=== PATIENT | female | born 1970 | race Caucasian/White ===

== ENCOUNTER 2017-01-16 10:52 | Emergency (ER) | payer MEDICARE ==
[~2017-01-16] VITALS: Ht 160 cm; Wt 69.0 kg
[~2017-01-16 10:52] MED LIST: CITRACAL + D C1 EACH PO; FOLBIC RF TABL1 EACH PO; GILDESS FE 1.51 EACH PO; IRON325 M1 PO; MEDROXYPROGESTE10 MG PO; NAPROSYN500 MG PO; NITROSTAT0.4 MG SL; PERCOCET 7.5-31 EACH PO; PRILOSEC20 MG PO; VITAMIN D5000 UNI1 PO
[2017-01-16] MEDS ORDERED: PROZAC40 MG PO (11:06)
--- NOTE | 2017-01-16 15:55 | EKG ---
[facility] [address] [facility] [place] [address] Signed Normal sinus rhythm Normal ECG No previous ECGs available Confirmed by KAN BAKER MD ([id number]) on 01/16/2017 3:55:29 PM Electronically Signed By: KAN BAKER MD 01/16/17 1555 PATIENT NAME: MICHOACANO AVALOS SOCORRO Electrocardiogram DATE OF : 72 PHYSICIAN: KAN BAKER MD REPORT #: [id number] REPORT IS CONFIDENTIAL AND NOT TO BE RELEASED WITHOUT AUTHORIZATION
== END 2017-01-16 13:30 | disposition home or self-care (01) ==
LOC: ED 10:52
DX: R00.2 Palpitations (principal); R07.9 Chest pain, unspecified; Z91.030 Bee allergy status; Z90.89 Acquired absence of other organs; Z90.49 Acquired absence of other specified parts of digestive tract; Z88.0 Allergy status to penicillin; Z88.8 Allergy status to other drugs, medicaments and biological substances; Z79.899 Other long term (current) drug therapy
CPT/HCPCS: 71020; 80053; 84443; 84484; 85025; 93005; 93010; 96374; 96375; 99284; J1885; J2060

== ENCOUNTER 2021-04-24 14:00 | Emergency (ER) | payer MEDICARE ==
[~2021-04-24] VITALS: Ht 157.5 cm; Wt 77.1 kg
[~2021-04-24 14:00] MED LIST changes: +PROZAC40 MG PO
--- OUTSIDE RECORDS SUMMARY | 2021-04-24 14:02 | XMS ---
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 Ev has no Care Guidelines for this patient. Jaent VISIT COUNT (12 MO.) 1 PINA Spears TOTAL 1 NOTE: Visits indicate total known visits. ED/UCC VISIT TRACKING (12 MO.) 04/24/2021 14:01 PINA [place] TYPE: Emergency COMPLAINT: - COLD SYMPTOMS INPATIENT VISIT TRACKING (12 MO.) No inpatient visits to display in this time frame [email or web address]
[2021-04-24] MEDS ORDERED: PREDNISONE20 MG PO (14:40)
[2021-04-24] MEDS ORDERED: VENTOLIN HFA18 GM INH (15:01)
== END 2021-04-24 15:16 | disposition home or self-care (01) ==
LOC: ED 14:00
DX: J45.901 Unspecified asthma with (acute) exacerbation (principal); G35 Multiple sclerosis; J45.909 Unspecified asthma, uncomplicated; Z88.0 Allergy status to penicillin; Z91.048 Other nonmedicinal substance allergy status; Z91.030 Bee allergy status; Z79.899 Other long term (current) drug therapy
CPT/HCPCS: 71046; 94640; 99284-25; J7512

== ENCOUNTER 2021-06-29 05:55 | Day surgery (SDC) | payer MEDICARE ==
[~2021-06-29] VITALS: Ht 157.5 cm; Wt 80.9 kg
--- NOTE | ~2021-06-29 | OR ---
[facility] [address] [place], [place] [address] Draft DATE OF OPERATION: 06/29/2021 SURGEON: Radha Cortez MD PREOPERATIVE DIAGNOSIS: Postmenopausal bleeding. POSTOPERATIVE DIAGNOSES: 1. Postmenopausal bleeding. 2. Endometrial polyps. ANESTHESIA: MAC. ESTIMATED BLOOD LOSS: Minimal. DRAINS: None. INDICATIONS AND FINDINGS: The patient is a 50-year-old female, who is on cyclic HRT for menopause and menopausal symptoms. Unfortunately, she has been having abnormal bleeding. At the time of surgery, exam under anesthesia revealed a normal-sized uterus. The cavity sounded to 9 cm. On evaluation of the cavity, there were polyps, both on the anterior and posterior fundus. DESCRIPTION OF PROCEDURE: The patient was prepped and draped in the dorsal lithotomy position. A weighted speculum was placed. The anterior lip of the cervix was visualized and grasped with a single-tooth tenaculum. The cavity sounded to 9 cm. The endocervical canal was then easily dilated to a #8 dilator. MyoSure device was placed and the cavity evaluated. The MyoSure Lite was then introduced and the polyps on the both anterior and posterior fundus were then removed without any difficulty. The remaining cavity appeared smooth and atrophic. The procedure was then terminated. The instruments removed. The tenaculum was removed. There was some bleeding initially from the right hand tenaculum site, which responded to pressure. Following this, the remaining instruments removed and the patient was taken to the recovery room. All sponge and needle counts were correct, and she tolerated the procedure well. PATIENT NAME: MICHOACANO AVALOS OPERATIVE REPORT DATE OF : 72 REPORT #: [id number] PHYSICIAN: RADHA CORTEZ MD PCP: LYLE COTTRELL REPORT IS CONFIDENTIAL AND NOT TO BE RELEASED WITHOUT AUTHORIZATION [address] [place], [place] [address] Draft MD DEVONTE Oh/VINEET /[id number] Copies: ~ PATIENT NAME: MICHOACANO AVALOS OPERATIVE REPORT DATE OF : 72 REPORT #: [id number] PHYSICIAN: RADHA CORTEZ MD PCP: LYLE COTTRELL REPORT IS CONFIDENTIAL AND NOT TO BE RELEASED WITHOUT AUTHORIZATION
[~2021-06-29 05:55] MED LIST changes: +ADVAIR 100-501 EACH INH; +ALEVE220 MG PO; +ESTRACE1 MG PO; +PREDNISONE20 MG PO; +VENTOLIN HFA18 GM INH
[2021-06-29] MEDS ORDERED: ARNUITY ELLIP100 MCG INH (06:25)
[2021-06-29] MEDS ORDERED: HYDROCODON-ACE1 EA10 PO (08:17)
[2021-06-29] MEDS ORDERED: MOTRIN IB200 M1 PO (08:17)
--- NOTE | 2021-06-30 18:29 | PATH ---
[facility] [address] [facility] [place] [address] Signed SPECIMEN(S): A ENDOMETRIAL POLYP SPECIMEN SOURCE: A. ENDOMETRIAL POLYP CLINICAL HISTORY: Postmenopausal bleeding. FINAL PATHOLOGIC DIAGNOSIS: Endometrial polyp: - Proliferative phase endometrium. - Some fragments of endometrium are intimately associated with myometrial fragments, most suggestive of features seen in a submucosal leiomyoma. TWK:caw:C2NR MICROSCOPIC EXAMINATION: The specimen consists of benign proliferative phase endometrium without significant abnormality. There is no evidence of hyperplasia or carcinoma. Chronic endometritis, interstromal fibrin, or products of conception are not identified. GROSS DESCRIPTION: The specimen, labeled "Rene, endometrial polyp as per the requisition," is received in formalin and consists of an aggregate of white rubbery soft tissue (3.4 x 1.7 x 0.5 cm). The specimen is submitted entirely in A1A2. KD (under the direct supervision of a pathologist) The Gross Description was prepared using a voice recognition system. The report was reviewed for accuracy; however, sound-alike word errors, addition and/or deletions may occur. If there is any question about this report, please contact Client Services. PERFORMING LABORATORY: The technical component was performed by [facility], [address] [place] [id number] (CLIA# [id number]). The professional interpretation was performed by [facility], [facility], [address] [place] [address] (CLIA#: [id number]). Diagnostician: Hua Thorpe MD Pathologist PATIENT NAME: MICHOACANO AVALOS PATHOLOGY DATE OF : 72 REPORT #: [id number] PHYSICIAN: RONAK PATHOLOGY PCP: LYLE COTTRELL REPORT IS CONFIDENTIAL AND NOT TO BE RELEASED WITHOUT AUTHORIZATION [address] [place], [place] [address] Signed Electronically Signed 06/30/2021 Copies: ~ PATIENT NAME: MICHOACANO AVALOS PATHOLOGY DATE OF : 72 REPORT #: [id number] PHYSICIAN: RONAK PATHOLOGY PCP: LYLE COTTRELL REPORT IS CONFIDENTIAL AND NOT TO BE RELEASED WITHOUT AUTHORIZATION
== END 2021-06-29 08:42 | disposition home or self-care (01) ==
LOC: DS 05:55
PROVIDERS: ATTEND Obstetrics & Gynecology
PROC: 0UB98ZX Excision of Uterus, Via Natural or Artificial Opening Endoscopic, Diagnostic (ICD-10-PCS; principal; 2021-06-29 07:00)
DX: N84.0 Polyp of corpus uteri (principal); N95.0 Postmenopausal bleeding; J45.909 Unspecified asthma, uncomplicated; Z86.16 Personal history of COVID-19; Z79.890 Hormone replacement therapy; J45.40 Moderate persistent asthma, uncomplicated; G35 Multiple sclerosis; E66.9 Obesity, unspecified; Z68.32 Body mass index [BMI] 32.0-32.9, adult; N71.9 Inflammatory disease of uterus, unspecified
CPT/HCPCS: 84703; J1644; J1885; J2001; J2250; J2704; J2765; J3010; J7121

== ENCOUNTER 2024-02-14 05:58 | Observation (INO) | payer MEDICARE ==
[~2024-02-14] VITALS: Ht 157.5 cm; Wt 75.6 kg
[2024-02-14] VITALS (8 sets, daily range): BP systolic 110–132; BP diastolic 62–81
--- NOTE | ~2024-02-14 | OR ---
[facility] [address] [place], [place] [address] Draft DATE OF OPERATION: 02/14/2024 SURGEON: Shahla Medina MD PREOPERATIVE DIAGNOSES: 1. Right inferior thyroid nodule (1.2 cm) TIRADS category 4, Berlin score indeterminate. 2. History of left thyroid lobectomy for benign adenoma. 3. Family history of thyroid cancer (mother). POSTOPERATIVE DIAGNOSES: 1. Right inferior thyroid nodule (1.2 cm) TIRADS category 4, Berlin score indeterminate. 2. History of left thyroid lobectomy for benign adenoma. 3. Family history of thyroid cancer (mother). PROCEDURE: Right near total thyroid lobectomy. EMBALMER ASSISTANT: Arnel Medina. INDICATION: This 53-year-old white woman is a patient of ESTELLA Meeks and well known to me from the past. She has family history of thyroid cancer in her mother. She underwent left thyroid lobectomy by me for a benign adenoma in 2007. She has had surveillance ultrasound for the contralateral right lobe. An ultrasound fine-needle aspiration biopsy was performed by me, however, the pathology reports were nondiagnostic. Nodule was considered a TIRADS category 4. She is not having symptoms related to the nodule that could be told. The nodule previously excised in continuity with the left thyroid lobectomy on August 09, 2007 was 20 mm in size. Given her family history, the indeterminate nature of fine-needle aspiration biopsy and presented with options of continued observation, she wishes to proceed with right thyroid lobectomy so as to avoid any further followup. She understands the risk of operation including but not limited to bleeding, infection, parathyroid gland loss, recurrent laryngeal nerve injury, and of course the need for ongoing thyroid medication. Understanding that she wished to proceed. FINDINGS: The right thyroid lobe was relatively small. The nodule itself was a bit over 1 cm. It PATIENT NAME: MICHOACANO AVALOS OPERATIVE REPORT DATE OF : 72 REPORT #: [id number] PHYSICIAN: SHAHLA MEDINA MD PCP: LYLE COTTRELL REPORT IS CONFIDENTIAL AND NOT TO BE RELEASED WITHOUT AUTHORIZATION [facility] [address] [place], [place] [address] Draft was firm and rubbery. There was no sign of penetration to the trachea or strap muscles. At least one inferior parathyroid gland was identified and well preserved. Subsequent to resection, the recurrent laryngeal nerve was identified and quite unharmed. Some parenchyma was left in the posterior aspect so as to avoid dissection in the inferior tracheal groove. She tolerated the procedure well. DESCRIPTION OF PROCEDURE: The patient was brought to the operating room, given a general endotracheal anesthetic. A carmela lounge position was maintained with shoulder roll and mild neck extension. The previous incision from left thyroid lobectomy from 2007 appeared quite good. The neck was then prepared with chlorhexidine solution and draped sterilely. An incision was made from the medial aspect of the sternocleidomastoid muscle on each side with a 15 blade and dissection carried through with cautery and blunt dissection. Superior and inferior flaps were developed. The sternal hyoid and sternal thyroid muscle were and subsequently sternal thyroid freed from the underlying right thyroid lobe. The lobe itself was not particularly large. There was a nodule that was firm and rubbery in the inferior medial aspect about 1.2 cm in size as predicted by ultrasound. Using blunt and sharp dissection, loose areolar attachments were freed from the overlying strap muscles. The middle thyroid veins were ligated with 4-0 silk ties and divided. The superior and inferior polar vessels were individually identified, isolated and ligated and divided with 4-0 silk ties also. In the inferior aspect adherent to the inferior pole of the thyroid not far from the nodule itself, was clearly a normal-appearing parathyroid gland. The fine reticular capsule of the thyroid was incised and the parathyroid bluntly from it keeping the posterior elements intact. Further dissection in the upper aspect laterally allowed for similar technique in the extracapsular technique of Freire. Ultimately, the ligament of Best was identified. Given the nodule was well out of the way of the posterior elements, cautery was used to transect the parenchyma in minimal amounts to leave a small bit of thyroid posteriorly thus protecting the nerve. The lobe was sent for permanent pathology with the nodule well demonstrated. Irrigation was undertaken. There was no untoward bleeding. Tisha hemostatic agent was applied to the thyroid parenchyma in the area. Plans were then made for closure after hemostasis was assured. Strap muscles were reapproximated with interrupted 2-0 Vicryl. The neck was taken out of extension. The platysma muscle was reapproximated, but before skin could be closed, it was noted that blood was welling up from the wound. The midline strap muscles were divided and re-examination showed parenchymal bleeding from the posterior thyroid remnant. This was secured with a hemostat and ligated with a 2-0 silk tie. This provided complete hemostasis. Irrigation was undertaken more fully and Tisha hemostatic agent was applied to the parenchymal surface itself. The recurrent laryngeal nerve do not specifically dissected free, was remained in situ in the tracheoesophageal groove area and had been identified once thyroid lobe is excised. PATIENT NAME: MICHOACANO AVALOS OPERATIVE REPORT DATE OF : 72 REPORT #: [id number] PHYSICIAN: SHAHLA MEDINA MD PCP: LYLE COTTRELL REPORT IS CONFIDENTIAL AND NOT TO BE RELEASED WITHOUT AUTHORIZATION [facility] [address] [place] [address] Draft The strap muscles were once again reapproximated with Vicryl and skin closed with running subcuticular 4-0 Vicryl. Steri-Strips were applied as was an Acticoat dressing. She tolerated the procedure well. Blood loss at most 15 mL. MD MARTY Perez/VINEET /[id number] cc: ESTELLA Meeks Copies: LYLE COTTRELL ~ PATIENT NAME: MICHOACANO AVALOS OPERATIVE REPORT DATE OF : 72 REPORT #: [id number] PHYSICIAN: SHAHLA MEDINA MD PCP: LYLE COTTRELL REPORT IS CONFIDENTIAL AND NOT TO BE RELEASED WITHOUT AUTHORIZATION
[~2024-02-14 05:58] MED LIST changes: +ARNUITY ELLIP100 MCG INH; +CITALOPRAM HBR10 MG PO; +HYDROCODON-ACE1 EA10 PO; +LACTATED RINGER'S 1,000 ML IV SCH; +MOTRIN IB200 M1 PO
[2024-02-14] MEDS ORDERED: LIDOCAINE HCL 1% 5 ML SDV INJ ONE (07:00)
[2024-02-14] MEDS ORDERED: DEXAMETHASONE SOD PHOS 4 MG/ML VIAL IV SCH (07:00)
[2024-02-14] MEDS ORDERED: CEFAZOLIN SODIUM 2 GM/20 ML SYR IV SCH (07:00)
[2024-02-14] MEDS ORDERED: IBLOOD GLUCOSE TEST STRIP 1 EA TEST VI PRN ×2 (07:00→10:30)
[2024-02-14] MEDS ORDERED: ROCURONIUM BROMIDE 50 MG/5 ML SYR ONE (07:16)
[2024-02-14] MEDS ORDERED: KETOROLAC TROMETHAMINE 30 MG/ML VIAL ONE (07:16)
[2024-02-14] MEDS ORDERED: DEXAMETHASONE SOD PHOS 4 MG/ML VIAL ONE (07:16)
[2024-02-14] MEDS ORDERED: propofoL 200 MG/20 ML VIAL ONE (07:16)
[2024-02-14] MEDS ORDERED: ACETAMINOPHEN 1,000 MG/100 ML VIAL ONE (07:16)
[2024-02-14] MEDS ORDERED: LIDOCAINE HCL 2% 5 ML SDV ONE (07:16)
[2024-02-14] MEDS ORDERED: SUGAMMADEX SODIUM 200 MG/2 ML ML ONE (07:16)
[2024-02-14] MEDS ORDERED: ondansetron HCL 4 MG/2 ML VIAL ONE (07:16)
[2024-02-14] MEDS ORDERED: LIDOCAINE HCL 2% 20 MG/ML VIAL INJ ONE (07:17)
[2024-02-14] MEDS ORDERED: fentaNYL citrate 100 MCG/2 ML VIAL ONE (07:17)
[2024-02-14] MEDS ORDERED: MIDAZOLAM HCL 2 MG/2 ML VIAL ONE (07:21)
--- NOTE | 2024-02-14 07:21 | NUR ---
0720 SPOKE WITH MANAGER TRANSIT ABOUT DECADRON ORDER. MANAGER TRANSIT STATES THAT HE DOES NOT WANT RN TO GIVE IT PRE OP, AND THAT MANAGER TRANSIT WILL GIVE MEDICATION IN THE CASE.
[2024-02-14] MEDS ORDERED: SCOPOLAMINE 1 MG/3 DAYS PATCH 1 EACH TDSY ONE (08:11)
[2024-02-14] MEDS ORDERED: PHENYLEPHRINE HCL 10 MG/ML VIAL ONE (08:19)
[2024-02-14] MEDS ORDERED: SEVOFLURANE 250 ML BTL INH ONE (08:49)
[2024-02-14] MEDS ORDERED: ePHEDrine sulfate 50 MG/ML AMP ONE (08:51)
[2024-02-14] MEDS ORDERED: fentaNYL citrate 50 MCG/ML SDV ONE (10:11)
[2024-02-14] MEDS ORDERED: LACTATED RINGER'S 1,000 ML IV SCH (10:15)
[2024-02-14] MEDS ORDERED: LEVOTHYROXINE SODIUM 150 MCG TAB PO SCH (10:15)
[2024-02-14] MEDS ORDERED: OXYCODONE/APAP 5/325 TAB PO PRN (10:15)
[2024-02-14] MEDS ORDERED: ondansetron HCL 4 MG/2 ML VIAL IV PRN ×2 (10:15→10:30)
[2024-02-14] MEDS ORDERED: HYDROmorphone HCL 1 MG/ML SYR IV PRN (10:30)
[2024-02-14] MEDS ORDERED: fentaNYL citrate 50 MCG/ML SDV IV PRN (10:30)
[2024-02-14] MEDS ORDERED: droPERidol 5 MG/2 ML VIAL IV PRN (10:30)
[2024-02-14] MEDS ORDERED: PROCHLORPERAZINE EDISYLATE 10 MG/2 ML VIAL IV PRN (10:30)
[2024-02-14] MEDS ORDERED: NALOXONE HCL 0.4 MG SYR IV PRN (10:30)
--- NOTE | 2024-02-14 11:07 | NUR ---
PATIENT ARRIVED TO THE UNIT WITH PACU NURSE VIA BED. PATIENT ABLE TO HELP TRANSFER TO UNIT BED. REPORT RECEIVED FROM PACU NURSE. PATIENT REPORTS PAIN IS 5/10 AT THIS TIME. VSS. DRESSING TO ANTERIOR NECK CDI WITH SCANT AMOUNT OF SHADOWNING NOTED. LUNGS CTA, BOWEL TONES ACTIVE X 4 QUADRANTS. REPORTS LAST BM WAS 02/12/24. IV SITE WNL. IV FLUIDS STARTED PER ORDERS. PATIENT REPORTS MILD DIZZINESS AT THIS TIME. VOLD WASH CLOTH TO FOREHEAD. SKIN INTACT THROUGHOUT. NO NEEDS AT THIS TIME CALL LIGHT WITHIN REACH.
--- NOTE | 2024-02-14 11:45 | NUR ---
02/14/24 1145 Evon Chase 1005- PT ARRIVES TO THE PACU WITH A NATURAL AIRWAY ON 6L OF O2 VIA MASK. PT SHOWS SIGNS OF DISCOMFORT WITH FACIAL GRIMACING. PT NODS YES WHEN ASKED ABOUT PAIN BUT UNABLE TO GIVE A NUMBER AT THIS TIME. PT AGREES TO GETTING PAIN MEDICATION. SURGICAL SITE IS CLEAN DRY AND INTACT. ALL MONITORS PUT IN PLACE AND VSS. PT ENCOURAGED TO TAKE DEEP BREATHS AND SLOW HER BREATHING AND SHE IS ABLE TO FOLLOW COMMANDS. ABDOMEN IS SOFT AND NON DISTENDED. LR INFUSING IN R WRIST. PT HOLDING NURSES HAND FOR COMFORT. 1010-O2 TURNED OFF AND MASK REMOVED. PT O2 SATS STAY ABOVE 90%. 1013- FENTANYL GIVEN SEE EMAR PER GOVERNMENT SERVICES PROFESSIONAL. 1016- PT IS ABLE TO REPORT 8/10 PAIN WITH FACIAL GRIMACING AND HER HANDS SQUEEZING AT HER SIDES. PT ENCOURAGED TO CONTINUE TO DEEP BREATHE AND REASSURED. 1017- FENTANYL GIVEN, SEE EMAR. 1023- PT SHOWS LESS FACIAL GRIMACING AND IS MORE RELAXED IN THE STRETCHER. PT REPORTS 6.5/10 FOR PAIN AND CLAIMS IT IS GETTING BETTER. 1029- FENTANYL GIVEN, SEE EMAR. 1035- PT FEELS THE URGE TO URINATE. BEDPAN PROVIDED WITH A UNMEASURABLE VOID. PT ALSO ASKS FOR A CHAPSTICK WHICH WAS PROVIDED AT THIS TIME. PT SHOWS LESS SIGNS OF DISCOMFORT. 1044- PT REPORTS 5/10 PAIN THAT IS MORE TOLERABLE. PT RESTING WITH EYES CLOSED. O2 SATS DECREASE TO 88% ALTHOUGH PT IS ABLE TO RECOVER TO 94% WITH NO COACHING. PLAN OF CARE DISCUSSED WITH PT. NO QUESTIONS OR CONCERNS AT THIS TIME. IV IS SALINE LOCKED AT THIS TIME. 1105- PT TRANSFERED TO MED SURG. BEDSIDE REPORT GIVEN TO GREG HUI. PT TRANSFERS FROM STRETCHER TO MED SURG BED INDEPENDENTLY WITH NO ISSUES. PULSE OX PUT IN PLACE, BED IN THE LOWEST POSITION AND CALL LIGHT WITHIN REACH. NO QUESTIONS OR CONCERNS. SURGICAL SITE ASSESSED TOGETHER AND IS CLEAN, DRY AND INTACT. CARE TURNED OVER AT THIS TIME.
--- NOTE | 2024-02-14 12:21 | NUR ---
VSS. PATIENT REPORTS PAIN IS INCREASING. PRN ADMINSTERED. DRESSING TO NECK REMAINS CDI WITH SCANT AMOUNT OF SHADOWNING NOTED. NO FURTHER NEEDS CALL LIGHT WITHIN REACH.
--- NOTE | 2024-02-14 13:07 | NUR ---
PATIENT C/O PAIN TO BACK TO NECK/HEAD ON RIGHT SIDE. DRESSING CDI WITH A SMALL AMOUNT OF SHODOWING. VSS. NO FURTHER NEEDS CALL LIGHT WITHIN REACH.
[2024-02-14] MEDS ORDERED: ACETAMINOPHEN 325 MG TAB PO SCH (14:00)
[2024-02-14] MEDS ORDERED: IBUPROFEN 600 MG TAB PO SCH (14:00)
--- NOTE | 2024-02-14 14:11 | NUR ---
VISITED DRUING SPIRITUAL CARE ROUNDS. PT APPEARED TO BE SLEEPING. DID NTO DISTURB. PROVIDED PRAYER.
--- NOTE | 2024-02-14 15:30 | NUR ---
PATIENT REPORTS PAIN IS 4/10 TO POSTERIOR RIGHT SIDE OF NECK. IV SITE REMAINS WNL. DRESSING REMAINS UNCHANGED WITH SMALL AMOUNT OF SHADOWNING NOTED. NO FURTHER NEEDS. CALL LIGHT WITHIN REACH.
--- NOTE | 2024-02-14 16:00 | NUR ---
Spoke with Marychuy. She states she lives in a 1 story home with 2 steps into the home. She denies any issues getting in or out. Her daughter plans to stay with her. Marychuy's mom lives with her and Marychuy is her cg. Marychuy does not use any DME. She does not have financial issues. She works for [employer] and she lets me know I speak with her when I call for their resources. She denies any needs and plans on dc tomorrow if all goes well.
--- NOTE | 2024-02-14 16:30 | NUR ---
ROUNDING ON PATIENT. NO NEEDS AT THIS TIME. CALL LIGHT WITHIN REACH.
--- NOTE | 2024-02-14 17:16 | NUR ---
ASSISTED PT TO THE RESTROOM AND BACK TO BED. PROVIDED NEW ICE PACK PER PT REQUEST. PT IS LYING IN BED VISITING WITH FAMILY MEMBER. PT BELONGINGS AND CALL LIGHT ARE WITHIN REACH. PT STATED NO FURTHER NEEDS AT THIS TIME.
[2024-02-14] MEDS ORDERED: PROGESTERONE200 MG PO (17:39)
[2024-02-14] MEDS ORDERED: LOTREXONE1.5 MG PO (17:40)
[2024-02-14] MEDS ORDERED: NAPROXEN500 MG PO (17:40)
[2024-02-14] MEDS ORDERED: IBUPROFEN 600 MG TAB PO PRN (17:45)
[2024-02-14] MEDS ORDERED: ACETAMINOPHEN 325 MG TAB PO PRN (17:45)
--- NOTE | 2024-02-14 19:49 | NUR ---
REPORT RECIEVED FROM DAY SHIFT RN. PATIENT RESTING IN BED. DENIES NEEDS AT THIS TIME. CALL LIGHT IN REACH.
--- NOTE | 2024-02-14 20:45 | NUR ---
PATIENT RESTING IN BED ON BACK. VS AND I&Os OBTAINED AND RECORDED. SCHEDULED MEDICATION ADMINISTERED. PATIENT REPORTS 7/10 THROAT PAIN. PRN PAIN MEDICATION ADMINSITERED PER PATIENT REQUEST. SCDs IN PLACE. FRESH WATER AND ICE PACK PROVIDED. ASSESSMENT COMPLETE. BOWEL TONES ACTIVE. PATIENT THROAT DRESSING C/D/I WITH MINIMAL DRAINAGE. PATIENT REPORTS NO FURTHER NEEDS. CALL LIGHT IN REACH. IV FLUSHES WNL.
[2024-02-14] MEDS ORDERED: POLYETHYLENE GLYCOL 3350 1 PACKET PO SCH (21:00)
--- NOTE | 2024-02-14 23:20 | NUR ---
NEW BAG IV FLUID INFUSING PER ORDER. PATIENT UP TO BATHROOM TO VOID INDEPENDENTLY. PATIENT BACK TO BED. SCDs IN PLACE. NO FURTHER NEEDS. CALL LIGHT IN REACH.
[2024-02-15 01:34] VITALS: BP 112/58
--- NOTE | 2024-02-15 02:19 | NUR ---
PATIENT RESTING IN BED. DENIES NEEDS AT THIS TIME. CALL LIGHT IN REACH.
[2024-02-15 02:23] VITALS: BP 112/58
[2024-02-15 04:45] VITALS: BP 113/64
--- NOTE | 2024-02-15 04:45 | NUR ---
PATIENT RESTING IN BED, AWAKE. VS AND I&Os OBTAINED AND RECORDED. PATIENT REPORTS 4/10 NECK PAIN BUT DENIES NEEDS CURRENTLY. NECK DRESSING C/D/I WITH MINIMAL DRY DRAINAGE NOTED. SCDs IN PLACE. PATIENT EDUCATED TO CALL IF SHE NEEDS ANYTHING. CALL LIGHT IN REACH.
[2024-02-15 05:13] VITALS: BP 113/64
--- NOTE | 2024-02-15 06:57 | NUR ---
SCHEDULED MEDICATION ADMINSITERED. PATIENT STATES SHE HAD AN OVERALL GOOD NIGHT. PATIENT STATES NO FURTHER NEEDS. CALL LIGHT IN REACH.
--- NOTE | 2024-02-15 07:25 | NUR ---
REPORT RECEIVED FROM [facility] LABORAT[facility] TECHNICIAN RN. PATIENT RESTING IN BED. IVF INFUSING WITH NO ISSUES OR CONCERNS. IV SITE REMAINS WNL. DRESSING TO ANTERIOR NECK REMAINS CDI SMALL AMOUNT OF SHADOWING SIMILAR TO PREVIOUS DAY NOTED. PATIENT REQUESTING ICE PACK FOR "HEADACHE". ICE PACK GIVEN AND PLACED TO RIGHT POSTERIOR NECK. NO FURTHER NEEDS AT THIS TIME. CALL LIGHT WITHIN REACH.
--- NOTE | 2024-02-15 08:00 | NUR ---
PATIENT RESTING IN BED DENIES ANY NEEDS AT THIS TIME. CALL LIGHT WITHIN REACH.
--- NOTE | 2024-02-15 08:55 | NUR ---
Pt denies needs. Will dc this morning.
[2024-02-15 09:08] VITALS: BP 108/72
[2024-02-15] MEDS ORDERED: CALCIUM CARBONATE 500 MG CHEW PO SCH (09:15)
--- NOTE | 2024-02-15 09:15 | NUR ---
PATIENT SITTING UP IN BED AT THIS TIME. LUNGS CTA, BOWEL TONES ACTIVE X 4. AM MEDICATIONS ADMINSTERED. PATIENT REPORTS PAIN IS 3/10 WHEN RESTING WHEN SHE SWALLOWS PAIN INCREASES TO 4/10. VSS. PATIENT VOIDING QUANITY SUFFICIENT. IV SITE REMAINS WNL. IV FLUIDS INFUSING WITH NO ISSUES OR CONERNS. DENIES ANY FURTHER NEEDS. CALL LIGHT WITHIN REACH.
--- NOTE | 2024-02-15 09:21 | NUR ---
MED REC COMPLETE
[2024-02-15] MEDS ORDERED: IBUPROFEN600 MG PO (10:28)
[2024-02-15] MEDS ORDERED: LEVOTHYROXINE150 MCG PO (10:29)
[2024-02-15] MEDS ORDERED: CALCIUM CARBON200 MG PO (10:29)
[2024-02-15] MEDS ORDERED: HEALTHYLAX17 GM PO (10:29)
[2024-02-15] MEDS ORDERED: TYLENOL EXTRA500 MG PO (10:30)
--- NOTE | 2024-02-15 10:38 | NUR ---
Patient is awake and alert. Case management entered to talk to them.
--- NOTE | 2024-02-15 11:06 | NUR ---
PT NOT AVAILABLE FOR VISIT. PROVIDED PRAYER.
--- NOTE | 2024-02-15 11:27 | NUR ---
PATIENT DISCHARGED. IV REMOVED WITH NO ISSUES. PATIENT PROVIDED WITH DISCHARGE INSTRUCTIONS. QUESTIONS ANSWERED. VSS.
--- NOTE | 2024-02-19 11:18 | PATH ---
[facility] [address] [place], [place] [address] Signed SPECIMEN(S): A RIGHT THYROID LOBAL NODULE SPECIMEN SOURCE: A. 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 These findings, together with the gross examination, support the pathologic diagnosis. GROSS DESCRIPTION: The specimen, labeled and designated "Nikunj López, right thyroid lobal nodule," is received in formalin and consists of a 13 g, 5.2 x 3.2 x 1.4 cm right thyroid lobe. The capsule is diffusely disrupted. The specimen subsequently inked as follows: Anteriorblue, posteriorblack, isthmus marginyellow. The specimen is serially sectioned from superior to inferior revealing a 0.7 x 0.6 x 0.4 cm england well-circumscribed nodule within the superior pole. 2.4 cm away there is a 0.9 x 0.9 x 0.8 cm will circumscribed variegated nodule within the inferior pole involving the isthmus margin. The background parenchyma is red and homogeneous. There are no additional nodules. Tax Manager Public sections are submitted as follows: Cassette Summary: (A1) isthmus margin with nodule (A2) superior pole with nodule #1 entirely submitted (A3) midpole (A4-A5) inferior pole with nodule #2 entirely submitted AA (under the direct supervision of a pathologist) The Gross Description was prepared using a voice recognition system. The report was reviewed for accuracy; however, sound-alike word errors, addition and/or PATIENT NAME: MICHOACANO LÓPEZ PATHOLOGY DATE OF : 72 REPORT #: [id number] PHYSICIAN: RONAK MARKS PCP: LYLE COTTRELL REPORT IS CONFIDENTIAL AND NOT TO BE RELEASED WITHOUT AUTHORIZATION [facility] [address] [place], [place] [address] Signed deletions may occur. If there is any question about this report, please contact Client Services. ADDITIONAL NOTES: Immunohistochemical and/or in situ hybridization studies if performed in this case included appropriate positive controls that reacted as expected. This test was developed and its performance characteristics determined by [facility]. It has not been cleared or approved by the U.S. Food and Drug Administration. The FDA has determined that such clearance or approval is not necessary. This test is used for clinical purposes. It should not be regarded as investigational or for research. [facility] is certified under the Clinical Laboratory Improvement Amendments of 1988 (CLIA) as qualified to perform high complexity clinical laboratory testing. PERFORMING LABORATORY: Technical component was performed by [facility], [address] [place] [id number] (CLIA# [id number]). Professional interpretation was performed by [facility] - [facility] [address] [place] [id number] Diagnostician: Parag Henson MD Pathologist Electronically Signed 02/19/2024 Copies: ~ PATIENT NAME: MICHOACANO LÓPEZ PATHOLOGY DATE OF : 72 REPORT #: [id number] PHYSICIAN: [facility]ONAK PATHOLOGY PCP: LYLE COTTRELL REPORT IS CONFIDENTIAL AND NOT TO BE RELEASED WITHOUT AUTHORIZATION
== END 2024-02-15 11:20 | disposition home or self-care (01) ==
LOC: DS 05:58 → MS 11:10 → DS 11:11 → MS 11:12
PROVIDERS: ADMIT Surgery; ATTEND Surgery
PROC: 0GBH0ZZ Excision of Right Thyroid Gland Lobe, Open Approach (ICD-10-PCS; principal; 2024-02-14 07:30)
DX: E04.1 Nontoxic single thyroid nodule (principal); E89.0 Postprocedural hypothyroidism; G35 Multiple sclerosis; Z79.899 Other long term (current) drug therapy; Z88.0 Allergy status to penicillin; Z88.8 Allergy status to other drugs, medicaments and biological substances; Z91.030 Bee allergy status; Z91.048 Other nonmedicinal substance allergy status; Z90.49 Acquired absence of other specified parts of digestive tract; Z80.8 Family history of malignant neoplasm of other organs or systems
CPT/HCPCS: 00320; 36415; 82310; A9270; J0131; J0690; J1100; J1885; J2003; J2250; J2371; J2405; J2704; J3010; J3490; J7121

== ENCOUNTER 2024-08-18 06:24 | Day surgery (SDC) | payer OTHER ==
[~2024-08-18] VITALS: Ht 160 cm; Wt 72.7 kg
[~2024-08-18 06:24] MED LIST changes: +CALCIUM CARBON200 MG PO; +ESTRADIOL1 MG PO; +HEALTHYLAX17 GM PO; +IBUPROFEN600 MG PO; -LACTATED RINGER'S 1,000 ML IV SCH; +LEVOTHYROXINE150 MCG PO; +LOTREXONE1.5 MG PO; +LUNESTA1 MG PO; +NAPROXEN500 MG PO; +OMEPRAZOLE20 MG PO; +PROGESTERONE200 MG PO; +PROVIGIL100 MG PO; +TYLENOL EXTRA500 MG PO
[2024-08-18 06:36] VITALS: BP 117/75
[2024-08-18] MEDS ORDERED: LACTATED RINGER'S 1,000 ML IV SCH (07:00)
[2024-08-18] MEDS ORDERED: LIDOCAINE HCL 1% 5 ML SDV INJ ONE (07:00)
[2024-08-18] MEDS ORDERED: IBLOOD GLUCOSE TEST STRIP 1 EA TEST VI PRN (07:00)
[2024-08-18] MEDS ORDERED: fentaNYL citrate 100 MCG/2 ML VIAL ONE (07:06)
[2024-08-18] MEDS ORDERED: MIDAZOLAM HCL 5 MG/5 ML VIAL ONE (07:06)
--- NOTE | 2024-08-18 08:13 | NUR ---
08/18/24 0813 Keron Snow 0806: PT ARRIVED TO PACU VIA STRETCHER. PT RESPONDING TO STIMULI AT THIS TIME. PT DENIES PAIN OR NAUSE. PTS ABDOMEN SOFT AND NON DISTENED. 0808: PT PASSING LARGE AMOUNTS OF GAS AT THIS TIME.
[2024-08-18 08:30] VITALS: BP 113/72
--- NOTE | 2024-08-18 18:29 | OR ---
[facility] [address], [place] [address] Signed DATE OF OPERATION: 08/18/2024 SURGEON: Shahla Medina MD PREOPERATIVE DIAGNOSIS: History of tubular adenoma 2017. POSTOPERATIVE DIAGNOSIS: 1. Normal-appearing colon. 2. Mild rectal inflammation, edema. PROCEDURE: Total colonoscopy to cecum with biopsy of rectum. ANESTHESIA: Intravenous sedation, fentanyl 150 mcg, and Versed 6 mg. INDICATION: This 54-year-old white woman is a patient of ESTELLA Meeks. She has underlying multiple sclerosis and is hypothyroid related to thyroidectomy for benign disease. She last underwent colonoscopy in 2017 where she was found to have a polyp (tubular adenoma) at 20 cm. She is admitted to undergo colonoscopy for surveillance. She has no persistent symptoms of bleeding, diarrhea, or constipation. She understands the risk of colonoscopy, which include, but are not limited to bleeding, infection, and perforation and wished to proceed. FINDINGS: The prep was excellent. Complete colonoscopy was undertaken of the cecum. She had mild rectal edema and inflammation, possibly bowel prep related. There were no polyps or diverticula. DESCRIPTION OF PROCEDURE: The patient was brought to the endoscopy suite and placed in lateral position, given intravenous sedation to the point of slurred speech and nystagmus. Digital rectal examination was normal. An Olympus video colonoscope was passed in the rectum and manipulated in the sigmoid. The air insufflation was rather inadequate and therefore, the scope was withdrawn and removed and another scope obtained with better air insufflation. This allowed for easy passage of the scope ultimately to the cecum. The ileocecal valve and appendiceal Electronically Signed By: SHAHLA MEDINA MD 08/18/24 1829 PATIENT NAME: MICHOACANO AVALOS OPERATIVE REPORT DATE OF : 72 REPORT #: [id number] PHYSICIAN: SHAHLA MEDINA MD PCP: LYLE COTTRELL REPORT IS CONFIDENTIAL AND NOT TO BE RELEASED WITHOUT AUTHORIZATION [facility] [address], [place] [address] Signed orifice were normal. Scope was withdrawn from that point. Examination throughout showed no sign of abnormality specifically no polyps, diverticular disease, or colitis. Retroflexed view showed mild rectal edema, probably bowel prep related. Biopsy was obtained nevertheless to assess for colitis. The scope was straightened, withdrawn, and removed. The patient was taken to recovery room in good condition. CONCLUDING DIAGNOSES: Essentially normal colon. Mild edema of rectum, possibly bowel prep related. PLAN: Recommend repeat colonoscopy in 10 years, sooner if symptoms should develop. She will return to the ongoing care of ESTELLA Meeks. MD MARTY Perez/TESSL /[id number] cc: ESTELLA Meeks Copies: LYLE COTTRELL ~ Electronically Signed By: SHAHLA MEDINA MD 08/18/24 1829 PATIENT NAME: MICHOACANO AVALOS OPERATIVE REPORT DATE OF : 72 REPORT #: [id number] PHYSICIAN: SHAHLA MEDINA MD PCP: LYLE COTTRELL REPORT IS CONFIDENTIAL AND NOT TO BE RELEASED WITHOUT AUTHORIZATION
--- NOTE | 2024-08-20 19:32 | PATH ---
[facility] [address] [facility] [place], [place] [address] Signed SPECIMEN(S): A RECTUM BIOPSY SPECIMEN SOURCE: A. 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 - Negative for inflammation, dysplasia, and malignancy. SDL MICROSCOPIC EXAMINATION: Immunohistochemical stains performed and reviewed: - Smooth muscle actin: Stains the leiomyoma and muscularis mucosa as expected. - Desmin: Stains the leiomyoma and muscularis mucosa as expected. - CD117: Positive in scattered leukocytes and negative in the leiomyoma. Argues against a diagnosis of gastrointestinal stromal tumor. Histologic sections of all submitted blocks are examined by light microscopy. These findings, together with the gross examination, support the pathologic diagnosis. SDL GROSS DESCRIPTION: The specimen, labeled and designated "Rene, rectum biopsy," is received in formalin and consists of two [place] soft tissue fragments, ranging from 0.2-0.3 cm. Entirely submitted in (A1). VB (under the direct supervision of a pathologist) The Gross Description was prepared using a voice recognition system. The report was reviewed for accuracy; however, sound-alike word errors, addition and/or deletions may occur. If there are any questions about this report, please contact Client Services. ADDITIONAL NOTES: Immunohistochemical and/or in situ hybridization studies if performed in this case included appropriate positive controls that reacted as expected. This test was developed and its performance characteristics determined by [employer] [facility]. It has not been cleared or approved by the U.S. Food and Drug Administration. The FDA has determined that PATIENT NAME: MICHOACANO AVALOS PATHOLOGY DATE OF : 72 REPORT #: [id number] PHYSICIAN: RONAK MARKS PCP: LYLE COTTRELL REPORT IS CONFIDENTIAL AND NOT TO BE RELEASED WITHOUT AUTHORIZATION [address] [address] Signed such clearance or approval is not necessary. This test is used for clinical purposes. It should not be regarded as investigational or for research. [facility] [employer] [facility] is certified under the Clinical Laboratory Improvement Amendments of 1988 (CLIA) as qualified to perform high complexity clinical laboratory testing. PERFORMING LABORATORY: Technical component was performed by [facility], [address] [place] [id number] (CLIA# [id number]). Professional interpretation was performed by [facility], [address] [place] [id number] (CLIA#: [id number]). Diagnostician: Iliana Pelayo MD Pathologist Electronically Signed 08/20/2024 Copies: ~ PATIENT NAME: MICHOACANO AVALOS PATHOLOGY DATE OF : 72 REPORT #: [id number] PHYSICIAN: RONAK PATHOLOGY PCP: LYLE COTTRELL REPORT IS CONFIDENTIAL AND NOT TO BE RELEASED WITHOUT AUTHORIZATION
== END 2024-08-18 08:45 | disposition home or self-care (01) ==
LOC: DS 06:24
PROVIDERS: ATTEND Surgery
PROC: 0DBP8ZX Excision of Rectum, Via Natural or Artificial Opening Endoscopic, Diagnostic (ICD-10-PCS; principal; 2024-08-18 07:30)
DX: Z12.11 Encounter for screening for malignant neoplasm of colon (principal); D12.8 Benign neoplasm of rectum; K62.89 Other specified diseases of anus and rectum; G35 Multiple sclerosis; E03.9 Hypothyroidism, unspecified; Z86.0100 Personal history of colon polyps, unspecified; Z80.8 Family history of malignant neoplasm of other organs or systems; Z90.49 Acquired absence of other specified parts of digestive tract; Z88.0 Allergy status to penicillin; Z91.030 Bee allergy status; Z88.8 Allergy status to other drugs, medicaments and biological substances; Z79.899 Other long term (current) drug therapy
CPT/HCPCS: 99153; G0500; J2250; J3010; J7121